=== PATIENT | female | born 1960 | race African-American/Black ===

== ENCOUNTER 2021-07-23 20:19 | Emergency (ER) | payer OTHER ==
[~2021-07-23] VITALS: Ht 170.2 cm; Wt 143.0 kg
[2021-07-23] MEDS ORDERED: IBUP-2029 MT (21:04)
[2021-07-23] MEDS ORDERED: LIDO700A30 TP (21:04)
[2021-07-23] MEDS ORDERED: KETOROLAC 60MG/2ML VIAL IM ONE (21:15)
[2021-07-23] MEDS ORDERED: LIDOCAINE 5% PATCH TOP SCH (21:15)
[2021-07-23 21:23] VITALS: BP 143/68
== END 2021-07-23 22:00 | disposition home or self-care (01) ==
LOC: ER 20:19
DX: G89.29 Other chronic pain (principal); M54.50 Low back pain, unspecified
CPT/HCPCS: 96372; 99283; J1885